=== PATIENT | female | born 1960 | race Caucasian/White ===

== ENCOUNTER → 2016-11-23 | Outpatient (CLI) | payer OTHER ==
[~2016-11-23] MED LIST: ARTHRITIS PAIN650 M2 PO; BLOOD PRESSURE MED; BRISDELLE7.5 MG PO; COLACE PO; LEVAQUIN750 MG PO; LIPITOR PO; MIRALAX17 GM PO; NO MEDICATIONS; NORCO1 TAB 10/3 PO; PANTOPRAZOLE SO40 MG PO; VOLTAREN75 MG PO
--- NOTE | ~2016-11-23 | CT114 ---
[facility] A Service of [facility] RADIOLOGY TEXT RESULTS PATIENT: ALEXANDER LEE LOCATION: [facility] : 64 UNIT #: [id number] AGE: [address]: Norbert Car MD SEX: F ORDER DR: [id number] [facility] [address] [place], [place] [address] [id number] O MR#: [id number] [facility] #: [id number] NAME: ALEXANDER LEE : 1960 SEX: F STUDY DATE/TIME: 11/23/2016 8:13 UNIT: [facility] ROOM: STUDY DESCRIPTION: CT Soft Tissue Neck W Cont Attending Physician: Norbert Car M.D. Referring Physician: Norbert Car M.D. Ordering Physician: Norbert Car M.D. Primary Care Physician: Godfrey Steve M.D. MEDICAL IMAGING REPORT This report is preliminary unless electronic signature is present EXAM Neck CT 11/23 HISTORY Non-Hodgkin's lymphoma. Follow up exam. Observation of malignant neoplasm. TECHNIQUE Axial images were obtained through the neck following IV contrast administration. Multiplanar reformats were obtained. This CT exam was performed with one or more of the following radiation dose reduction techniques: automatic exposure control, adjustment of mA and/or kV according to patient size, and iterative reconstruction. COMPARISON 11/25/2015 FINDINGS For description of findings in the upper chest, please see the chest CT report dictated separately. Thyroid gland unremarkable. Larynx is normal. epiglottis is normal. salivary glands are normal. tonsillar pillars are symmetric. There are a few scattered small lymph nodes on both sides of the neck. No pathologic adenopathy is identified. There are no suspicious osseous lesions. Prevertebral soft tissues are normal. IMPRESSION No acute findings in the neck. No evidence of recurrent lymphoma. Dictated by... Toni Arriaga Jr., M.D. [facility] A Service [facility] RADIOLOGY TEXT RESULTS PATIENT: ALEXANDER LEE LOCATION: [facility] : 64 UNIT #: [id number] AGE: [address]: Norbert Car MD SEX: F ORDER DR: THIS IS AN ELECTRONICALLY VERIFIED REPORT Toni Arriaga Jr., M.D. at 11/24/2016 7:19 AM JASPAL/chance TD: 11/23/2016 20:03 JOB #: [id number] MEDICAL IMAGING REPORT Page 1 of 1 COPY
--- NOTE | ~2016-11-23 | CT2 ---
[facility] A Service of [facility] & [facility] RADIOLOGY TEXT RESULTS PATIENT: ALEXANDER LEE LOCATION: [facility] : 64 UNIT #: [id number] AGE: [address]: Norbert Car MD SEX: F ORDER DR: [id number] [facility] [address] [place], [place] [address] [id number] O MR#: [id number] Acc #: [id number] NAME: ALEXANDER LEE : 1960 SEX: F STUDY DATE/TIME: 11/23/2016 08:13 UNIT: [facility] ROOM: STUDY DESCRIPTION: CT Abd and Pelv W Cont Attending Physician: Norbert Car M.D. Referring Physician: Norbert Car M.D. Ordering Physician: Norbert Car M.D. Primary Care Physician: Godfrey Steve M.D. MEDICAL IMAGING REPORT This report is preliminary unless electronic signature is present EXAM CT abdomen and pelvis with contrast, 11/23/2016 08:13 hours HISTORY 56-year-old woman with history of non-Hodgkin's lymphoma for annual followup. No current complaints in the abdomen or pelvis. COMPARISON CT abdomen and pelvis, 11/25/[address] images were obtained from the lung bases through the pubic symphysis with intravenous contrast only. Sagittal and coronal reconstructions were performed. Contrast was Isovue-370 100 mL IV. Total exam DLP for the neck, chest, abdomen and pelvis study today is 1607 mGy-cm. This CT exam was performed with one or more of the following radiation dose reduction techniques: automatic exposure control, adjustment of mA and/or kV according to patient size, and iterative reconstruction. FINDINGS Images through the lung bases demonstrate reticulonodular changes similar to 11/25/2015 likely post infectious. Images through the abdomen demonstrate normal-sized liver and spleen. Benign hemangioma measuring 1.5 cm in the left lobe of the liver is stable. No new liver lesion is seen. The pancreas, gallbladder and bile ducts are normal. The adrenal glands are normal. The kidneys demonstrate no mass, stone or obstruction. There is atherosclerotic change of the abdominal aorta which is normal in caliber. There are several very small retroperitoneal, periaortic lymph nodes. Example node now measures 6.0 mm, previously 9.0 mm. There are no pathologically enlarged nodes in the STS. [facility] A Service of [facility] & [facility] RADIOLOGY TEXT RESULTS PATIENT: ALEXANDER LEE LOCATION: [facility] : 64 UNIT #: [id number] AGE: [address]: Norbert Car MD SEX: F ORDER DR: abdomen or pelvis. The stomach is contracted but appears normal. No small bowel lesion is seen. Terminal ileum and appendix are normal. There is no colonic wall thickening. CT pelvis demonstrates anteverted uterus with a nodule in the fundus most consistent with a stable fibroid. There is no adnexal mass or pelvic free fluid. No inguinal adenopathy. IMPRESSION 1. There is no pathologic adenopathy in the abdomen or pelvis. Example retroperitoneal lymph node to the left of the aorta measures 6.0 mm short axis, previously 9.0 mm 11/25/2015. 2. Stable benign hemangioma left lobe of the liver. 3. Stable nodule in the fundus of the uterus consistent with benign leiomyoma. Dictated by... Isis Hughes M.D. THIS IS AN ELECTRONICALLY VERIFIED REPORT Isis Hughes M.D. at 11/24/2016 9:24 AM EDNA/jayro TD: 11/23/2016 16:51 JOB #: [id number] MEDICAL IMAGING REPORT Page 1 of 1 COPY
--- NOTE | ~2016-11-23 | CT55 ---
[facility] A Service of [facility] & [facility] RADIOLOGY TEXT RESULTS PATIENT: ALEXANDER LEE LOCATION: [facility] : 64 UNIT #: [id number] AGE: [address]: Norbert Car MD SEX: F ORDER DR: [id number] [facility] [address] [place], [place] [address] [id number] O MR#: [id number] Acc #: [id number] NAME: ALEXANDER LEE : 1960 SEX: F STUDY DATE/TIME: 11/23/2016 0813 UNIT: [facility] ROOM: STUDY DESCRIPTION: CT Chest W Con Attending Physician: Norbert Car M.D. Referring Physician: Norbert Car M.D. Ordering Physician: Norbert Car M.D. Primary Care Physician: Godfrey Steve M.D. MEDICAL IMAGING REPORT This report is preliminary unless electronic signature is present EXAM CT chest with contrast, 11/23/2016, 0813 hours. CLINICAL HISTORY 56-year-old woman with non-Hodgkin's lymphoma for annual followup. No current chest complaints. COMPARISON Chest CT, 11/25/2015. TECHNIQUE Dynamic helical CT images were obtained from the thoracic inlet through the adrenal glands. Sagittal and coronal reconstructions were performed. Contrast was Isovue-370 100 mL IV. Total exam DLP for the neck, chest, abdomen and pelvis CT exams today is 1607 mGy-cm. This CT exam was performed with one or more of the following radiation dose reduction techniques: automatic exposure control, adjustment of mA and/or kV according to patient size, and iterative reconstruction. FINDINGS Images through the thoracic inlet demonstrate a normal thyroid gland. There is no supraclavicular adenopathy. No pathologic axillary nodes. Images through the chest demonstrate a normal aorta. There is no pathologic mediastinal, hilar, or prevascular nodes. Coronary calcifications are present. There is no pericardial or pleural fluid. A very small hiatal hernia is unchanged. Lung window images demonstrate clear upper lobes. There is mild reticulonodular change at the lung bases, right greater than left. This is minimally increased from 11/25/2015 and likely represents sequela of prior infection. [facility] A Service of [facility] RADIOLOGY TEXT RESULTS PATIENT: ALEXANDER LEE LOCATION: [facility] : 64 UNIT #: [id number] AGE: [address]: Norbert Car MD SEX: F ORDER DR: Please see separately dictated report of CT abdomen and pelvis for findings below the hemidiaphragms. IMPRESSION 1. No lymphadenopathy in the chest. 2. There is reticulonodular change at the lung bases similar to 11/25/2015. It is favored this represents post infectious change. The stability from 11/25/2015 suggests benignity. 3. Please see separately dictated report of CT abdomen and pelvis for findings below the hemidiaphragms. Dictated by... Isis Hughes M.D. THIS IS AN ELECTRONICALLY VERIFIED REPORT Isis Hughes M.D. at 11/24/2016 9:24 AM EDNA/yury TD: 11/23/2016 16:51 JOB #: [id number] MEDICAL IMAGING REPORT Page 1 of 1 COPY
== END | disposition home or self-care (01) ==
LOC: CCAT 07:12
DX: R59.9 Enlarged lymph nodes, unspecified (principal); D18.03 Hemangioma of intra-abdominal structures; N85.8 Other specified noninflammatory disorders of uterus
CPT/HCPCS: 70491; 71260; 74177; Q9967